=== PATIENT | female | born 1980 | race Caucasian/White ===

== ENCOUNTER 2019-01-16 15:15 | Outpatient (RCR) | payer OTHER, SELFPAY | END 2019-02-02 23:59 | LOC: NS 15:15 | PROVIDERS: Visit Provider Obstetrics & Gynecology | DX: O99.210 Obesity complicating pregnancy, unspecified trimester (principal) | CPT/HCPCS: 97802 ==

== ENCOUNTER 2019-02-13 08:34 | Outpatient (RCR) | payer OTHER, SELFPAY ==
[2016-04-13 10:30] VITALS: BMI 32.3
== END 2019-03-04 23:59 ==
LOC: NS 08:34
PROVIDERS: Visit Provider Obstetrics & Gynecology
DX: O99.210 Obesity complicating pregnancy, unspecified trimester (principal)
CPT/HCPCS: 97803

== ENCOUNTER 2019-03-13 09:23 | Outpatient (RCR) | payer OTHER, SELFPAY ==
[2016-04-13 10:30] VITALS: BMI 32.3
== END 2019-03-13 16:14 | disposition home or self-care (01) ==
LOC: NS 09:23
PROVIDERS: Visit Provider Obstetrics & Gynecology
DX: O99.210 Obesity complicating pregnancy, unspecified trimester (principal); Z71.3 Dietary counseling and surveillance
CPT/HCPCS: 97803

== ENCOUNTER 2019-07-30 18:50 | Inpatient (IN) | payer OTHER, SELFPAY ==
[2019-07-30] VITALS (10 sets, daily range): BP systolic 117–145; BP diastolic 61–87; PULSE 71–99; RESP 14–17; TEMP 35.9–36.6; O2SAT 96–98; BMI 36.1
[2019-07-30] MEDS: Lactated Ringers 1,000 ML 999 ML IV (19:00)
[2019-07-30 19:26] LABS: Absolute Lymphocyte Count 2.07 X10^3/uL (0.83-4.51); Basophil# 0.02 X10^3/uL; Basophil% 0.2 % (0-1); Eosinophil# 0.07 X10^3/uL; Eosinophils% 0.7 % (0-5); Hematocrit 36.1 % (37-47); Hemoglobin 12.3 g/dL (12.0-15.0); Lymphocyte # 2.07 X10^3/ul (4.0); Lymphocyte % 21.1 % (19-41); Mean Corp Hgb Conc 34.1 g/dL (32-36); Mean Corpuscular Hgb 29.4 pg (27.0-32.0); Mean Corpuscular Volume 86.4 fL (81-99); Mean Platelet Vol. 9.5 fl (6.2-12.0); Monocyte# 0.59 X10^3/uL; NRBC Flagged by Analyzer 0 % (0-5); Neutrophil # 7.01 X10^3/uL (2.7-7.7); Neutrophil % 71.5 % (47-70); Platelet Count 224 K/mm3 (150-450); RBC Distribution Width CV 12.9 % (11.6-14.6); RBC Distribution Width SD 40.2 fl (35.1-43.9); Red Blood Count 4.18 M/mm3 (4.2-5.4); White Blood Count 9.8 K/mm3 (4.4-11.0)
[2019-07-30] MEDS: Cefazolin 2 GM in 0.9% Normal Saline 100 ML IV (19:45)
[2019-07-30] MEDS: Sodium Citrate/Citric Acid 30 ML UDC PO (19:49)
--- NOTE | 2019-07-30 20:00 | PLAC_PTH ---
PATIENT: NICHOLAS TAM LOC: [facility] U#:[id number] AGE/SX: 39/F ROOM: WP006 RE07/30/[address]: Dr. Melissa López MD : [id number] BED: 1 DIS: 08/02/2019 SPEC #: [id number] RECD: 07/30/19 22:59 STATUS: KD REKezia #: [id number] YOEL: 07/30/19 20:[address]: Melissa López DEPT: SURGICAL PATHOLOGY RECD BY: Vicente Branch ENTERED: 07/31/19 09:18 SP TYPE: PLACENTA OTHR DR: No Primary Care Phys Tissues: A - Placenta, NOS B - Fallopian tube C - Fibrous tissue Procedures: Surgery Specimen Level IV Surgery Specimen Level V HEADER OPERATION: Repeat section; tubal ligation PRE-OP DIAGNOSIS: PPROM TISSUE SUBMITTED: A - Placenta, B - Bilateral fallopian tubes, C - Uterine fibroid MICROSCOPIC DIAGNOSIS A. Tarango placenta (428 gm): Umbilical cord - trivascular with no evidence of inflammation. Placental membranes - mild acute deciduitis. Placental disc - organizing intraparenchymal hemorrhage and mild Jin-Glen change. B. Right and left fallopian tubes, bilateral salpingectomies: Right fallopian tube - Complete segment of fallopian tube with no pathologic change. Left fallopian tube - benign paratubal cyst. C. Uterine fibroid, excision: Leiomyoma with degenerative change. AM:nathanael 08/01/19 MICROSCOPIC DESCRIPTION Slides are reviewed. GROSS DESCRIPTION A - SPECIMEN: PLACENTA / CLINICAL INFORMATION: A. Weight: 2.765 kg B. Gestational Age: 35 weeks C. Sex: Male PLACENTAL WEIGHT (POST FIXATION): 428 gm PLACENTAL DIMENSIONS: 16 x 13 x 3.7 cm PLACENTAL SHAPE: Usual ovoid PLACENTAL WEIGHT FOR GESTATIONAL AGE: Within 10-99th percentile MEMBRANES - Present A. Insertion: Marginal B. Site of rupture from edge: 2.5 cm from edge of placental disc C. Color of membrane: Daniels-moses D. Abnormalities: None UMBILICAL CORD - Present A. Color: Daniels-moses B. Insertion: Eccentric C. Length: 33 cm D. Diameter: 1.5 cm E. Number of vessels: Three F. Abnormalities: None PLACENTAL DISC - Present A. Color of surface: Daniels-moses B. surface abnormalities: None C. Maternal cotyledons: Intact with minimal tears D. Attached retro placental clot: No clot E. Cut surface: Dark red and spongy F. Lesions: One lesion, reddish-daniels, measuring 1 cm in greatest dimension. G. Separate clot: 10 x 7 x 2 cm SECTIONS SUBMITTED: 1. Umbilical cord ( end notched) 2. Umbilical cord, maternal end 3. Membrane roll 4. Placental disc, and maternal surfaces, lesion 5. Placental disc, and maternal surfaces 6. Placental disc, and maternal surfaces AM: 07/31/19 B - Received is one container labeled with the patient's name and designated bilateral fallopian tubes. The specimen consists of bilateral fallopian tubes including fimbrial ends measuring 7 cm in length and up to 0.8 cm in diameter and 7.5 cm in length and up to 0.7 cm in diameter. One of the fallopian tubes show two smaller paratubal cysts filled with clear fluid each measuring 0.4 cm in greatest dimension. The fallopian tubes are not identified as right or left. Sections reveal unremarkable cut surfaces. Shipfitter sections are submitted in two cassettes as follows: 1 - one fallopian tube, 2 - second fallopian tube and paratubal cyst. / SJ: 07/31/19 C - Received in fixative is one container labeled with the patient's name and designated fibroid. The specimen consists of a nodular piece of daniels, indurated tissue measuring 2.2 x 1.5 x 1 cm. Sections of this mass reveal daniels whorled cut surfaces without areas of hemorrhage, necrosis or cystic degeneration. The entire specimen is submitted in two cassettes. / SJ:nathanael 07/31/19 TC:2 CPT: 53134,45471 x2
[2019-07-30] MEDS: Lactated Ringers 1,000 ML 150 ML IV (20:01)
--- NOTE | 2019-07-30 20:04 | PCM.HP.BLA ---
History and Physical Date of Admission: 07/30/19 HPI: The patient is a 38 year old female presenting for pre-operative visit. She is scheduled for? and bilateral salpingectomy, for?previous c/s, 35 w1 d , PPROM, sterilization request on?07/30/2019. ??Procedure discussed along with risks, benefits and complications. ?Other alternatives discussed for management. Consent form signed??Yes.? PAST MEDICAL HISTORY PAST MEDICAL HISTORY Diagnosis Date ? Asthma ? ? Hyperprolactinemia (HCC) ? ? dx by ? Infertility, female ? ? Seasonal allergies ? ? ? PAST SURGICAL HISTORY PAST SURGICAL HISTORY Procedure Laterality Date ? APPENDECTOMY ? 1997 ? DELIVERY ONLY ? 04/13/16 ? , low transverse ? SECTION HX ? 2014 ? ? CURRENT MEDICATIONS Current Outpatient Medications Medication Sig Dispense Refill ? oseltamivir (TAMIFLU) 75 mg capsule Take 1 capsule by mouth twice daily. 10 capsule 0 ? ferrous sulfate 325 mg (65 mg iron) tablet Take 325 mg by mouth every other day. ? ? ? Ctbhqrro-Kq-Hea-Fe-FA ( VITAMIN) tab Take 1 tablet by mouth. ? ? ? montelukast (SINGULAIR) 10 mg tablet Take 1 tablet by mouth daily at bedtime. 90 tablet 3 ? albuterol HFA (PROAIR HFA) 90 mcg/actuation inhaler Inhale 2 Puffs as instructed every 4 hours as needed. 1 Inhaler 5 ? triamcinolone acetonide (NASACORT AQ) 55 mcg nasal inhaler Use 2 Sprays in the nose daily at bedtime. 3 Bottle 3 ? Cholecalciferol, Vitamin D3, (VITAMIN D) 1,000 unit ORAL Cap Take 1,000 Units by mouth once daily. ? ? ? No current facility-administered medications for this visit.? ? ALLERGIES:?Dust Mites; Pollens Extract; Seasonal Allergies ? PERSONAL HISTORY:? SOCIAL HISTORY Social History ? Tobacco Use ? Smoking status: Never Smoker ? Smokeless tobacco: Never Used Substance Use Topics ? Alcohol use: Not Currently ? ? Comment: 1/week, not while ? Drug use: No ? FAMILY HISTORY:? FAMILY HISTORY FAMILY HISTORY Problem Relation Age of Onset ? Allergies Mother ? ? Thyroid Mother ? ? other (adult onset asthma) Mother ? ? No Known Problems Father ? ? No Known Problems Sister ? ? No Known Problems Sister ? ? No Known Problems Sister ? ? Diabetes Maternal Grandmother ? ? other (dementia) Maternal Grandfather ? ? Diabetes Paternal Grandmother ? ? No Known Problems Daughter ? ? other (skin cancer) Other ?aunts and GF: basal cell ? Breast Cancer Other ?paternal cousin. age 34 ? Breast Cancer Other ?paternal aunts ? No Known Problems Daughter ? ? REVIEW OF SYMPTOMS: GENERAL: denies fevers or chills ENDOCRINOLOGY: has not been on steroids Cardiology : denies palpitations or chest pain Respiratory: denies SOB or cough Hematology: denies history of prolonged bleeding or easy bruising or VTE Allergy: Denies history of personal or family history of allergy to anesthesia ? ? PHYSICAL EXAMINATION: ? VITALS:?Blood pressure 116/78, weight 231 lb (104.8 kg), last menstrual period 11/26/2018. ? GENERAL:??The patient is well nourished, well hydrated in no acute distress. ?, The patient is oriented to time, place, and person. NECK:?Supple. No lynphadenopathy, normal thyroid, no thyromegaly. LUNGS:?Clear to auscultation bilaterally. no wheezes, rhonchi or rales HEART:?Regular rate and rhythm, Normal heart sounds and No murmurs or gallops ABD: soft, nontender, gravid ? ? IMPRESSION:?35w1d? w/ PPROM ? PLAN:???The risks/benefits/alternatives and personal involved for the planned?c/s and bilateral salpingectomy?were reviewed with the patient. Her questions were answered to her satisfaction and she desires to proceed. ?Consent was signed. ?I reviewed with her postop instructions and expectations. ? ? I have reviewed and updated past medical and surgical history, medications and allergies? This H&P was completed in my office on 07/30/2019
--- NOTE | 2019-07-30 20:50 | PCM.OPRPT ---
Delivery Classification: Scheduled Final KENNY: 09/02/19 Gestational age: 35 Weeks and 1 Days space and storage clerk: Kasey Nguyễn Type of Anesthesia:: Spinal Special Medications: duramorph Implants Used: none Date of Procedure: 07/30/19 Pre-Operative Diagnosis: PPROM, previous c/s, sterilization request Post-Operative Diagnosis: same + uterine fibroid Indications for : Repeat Elective , Desires elective sterilization, - - uterine fibroid in lower uterine segmen Description of Procedure: The patient was taken to the operating room. She was prepped and draped in the dorsal supine position with a leftward tilt. A Pfannenstiel skin incision was made approximately 2 cm above the symphysis pubis and carried through to underlying layer fascia with the scalpel. The fascia was incised incised in the midline and extended laterally with the Perla scissors. The fascia was dissected off the rectus muscles with blunt and sharp dissection. The rectus muscles were in the midline and the peritoneum was entered bluntly. The peritoneal incision was stretched and the bladder blade was placed. The uterine incision was made in a low transverse fashion with the scalpel and extended superiorly and inferiorly with blunt dissection. The amniotic membranes were ruptured bluntly and minimal clear amniotic fluid returned. The 's head was brought to the incision in the flexed position and delivered without difficulty. The remainder of the infant was delivered with gentle traction and fundal pressure in the standard fashion. The mouth and nares were bulb suctioned. The cord was clamped and cut as the infant was stimulated. Cord clamping was delayed. The infant was handed off to the waiting nursing staff. The placenta was delivered with fundal massage and gentle traction in the standard fashion. The uterus was exteriorized and cleared of all clots and debris. The cervix was dilated with a ring forcep. There is a small uterine fibroid in the right portion of the lower uterine segment. It was where I was going to be placing my sutures to close the uterine incision so it was shelled out. This made the incision come together better. The uterine incision was closed with #1 Vicryl in a running locked fashion. The incision was examined and was found to be hemostatic. The uterus was placed back into the peritoneal cavity and hemostasis was again confirmed. The left tube was notified and followed out to the fimbriated end. It was tented up with Childwold clamps. The LigaSure device was used to clamp, seal and transect the tube along the antimesenteric portion. Hemostasis of the pedicles was assured. The same procedure was performed on the contralateral side and again hemostasis was assured. The rectus muscles were examined and any bleeding was Bovie cauterized. The parietal peritoneum and rectus muscles were closed en bloc with an 0 Vicryl running suture. The rectus fascia was examined and any bleeding was Bovie cauterized and the rectus fascia was closed with 0 PDS suture in a running standard fashion. The subcutaneous tissue was examining and any bleeding was Bovie cauterized. The subcutaneous tissue was reapproximated with 3-0 Vicryl suture. The skin was closed in a subcuticular fashion by the NURSING TECHNICIAN with me present in the labor and delivery suite. I performed the remainder of the procedure with assistance. All sponge, lap, and needle counts were correct. The patient was taken to her room for recovery in a stable condition. Amniotic Membrane Rupture Type: Spontaneous Amniotic Fluid Description: Clear Placenta Disposition: Sent to Pathology Specimen(s) sent to pathology: placenta Drain: Reddy to straight drain Fluids Replaced: 1500 Cord Entanglement: None Cord Vessel Description: 3 Vessels Esitmated Blood Loss (ml): 600 Infant Gender: Male (1 minute): 8 (5 minute): 9 Delayed cord clamping: Yes Antibiotic Given: Ancef 2 grams IV x1, Zithromax 500 mg/5 mL X1 Complications: None - Admit VTE Documentation VTE Present on Admission: No VTE Mechan Device Prophylaxis: SCD's VTE Pharm Prophylaxis ordered?: Yes
[2019-07-30] MEDS: Oxytocin 30 units/NS 500 ml 30 UNITS/500 ML IV.SOLN 167 UNITS IV (21:15)
[2019-07-30] MEDS: Lactated Ringers 1,000 ML 100 ML IV (21:15)
[2019-07-30] MEDS: 0.9% Saline Lock 10 ML Syringe IV (22:49)
[2019-07-30] MEDS: Ondansetron 4 MG/2 ML Vial IV (22:50)
[2019-07-30 22:56] LABS: Pathology Specimen OB SEE PATHOLOGY REPORT
[2019-07-31] VITALS (10 sets, daily range): BP systolic 100–127; BP diastolic 50–71; PULSE 70–84; RESP 14–16; TEMP 36–36.6; O2SAT 96–98
--- NOTE | 2019-07-31 00:56 | NURSING ---
1500 cc IV fluid intake per Dr canales anesthesiologist.
--- NOTE | 2019-07-31 01:19 | NURSING ---
late entry. dr canales anesthesiologist gave toradol at 203907/30/19 in OR. pharmacist states this RN should not chart this med administration on AUG. next timed dose at 0300 and to be given by this RN.
[2019-07-31] MEDS: Ketorolac 30 MG/ML Syringe IV ×4 (03:04→20:37)
[2019-07-31] MEDS: Lactated Ringers 1,000 ML 100 ML IV (03:04)
[2019-07-31] MEDS: 0.9% Saline Lock 10 ML Syringe IV ×4 (03:04→20:37)
[2019-07-31 05:22] LABS: Hematocrit 28.6 % (37-47); Mean Corpuscular Hgb 30.4 pg (27.0-32.0); Mean Corpuscular Volume 86.9 fL (81-99); Mean Platelet Vol. 9.4 fl (6.2-12.0); Platelet Count 149 K/mm3 (150-450); RBC Distribution Width CV 12.8 % (11.6-14.6); RBC Distribution Width SD 40.3 fl (35.1-43.9); Red Blood Count 3.29 M/mm3 (4.2-5.4); White Blood Count 9.7 K/mm3 (4.4-11.0)
[2019-07-31] MEDS: Enoxaparin 40 MG/0.4 ML Syringe SC (10:41)
[2019-07-31] MEDS: Montelukast 10 MG Tablet PO (10:41)
--- NOTE | 2019-07-31 13:33 | PCM.PN.OB ---
Subjective: pain well controlled, average lochia, no N/V - Physical Exam Vitals/I&O's: Vital Signs Temp Pulse Resp BP Pulse Ox 97.3 F L 75 16 107/67 98 07/31/19 07:51 07/31/19 07:51 07/31/19 07:51 07/31/19 07:51 07/31/19 07:51 Oxygen Delivery Method Room Air Weight: 104.7 kg Body Mass Index (BMI) 36.1 Intake and Output for Last 24 Hours 07/29/19 07/30/19 07/31/19 23:59 23:59 23:59 Intake Total 3136.5 / 3136.5 4251.67 / 4251.67 Output Total 300 / 300 1050 / 1050 Balance 2836.5 / 2836.5 3201.67 / 3201.67 General: Alert, Cooperative, No apparent distress Abdomen: Soft, Non Tender, Non-Distended, Gravid Extremities: Edema - trace Skin: Incision - bandage is clean, dry and intact Laboratory Results 07/30/19 19:00: WBC 9.8, RBC 4.18 L, Hgb 12.3, Hct 36.1 L, MCV 86.4, MCH 29.4, MCHC 34.1, RDW Std Deviation 40.2, RDW Coeff of Neftaly 12.9, Plt Count 224, MPV 9.5, Immature Gran % (Auto) 0.500, Neut % (Auto) 71.5 H, Lymph % (Auto) 21.1, Weston % (Auto) 6.0, Eos % (Auto) 0.7, Baso % (Auto) 0.2, Absolute Neuts (auto) 7.0, Absolute Lymphs (auto) 2.07, Nucleated RBC % 0 07/30/19 19:00: Blood Type A NEGATIVE, Antibody Screen TNP 07/30/19 19:00: Antibody Screen NEGATIVE 07/30/19 22:40: Screen NEGATIVE, Baby's Blood Type A POSITIVE, Baby's DEANNA NEGATIVE 07/31/19 05:15: WBC 9.7, RBC 3.29 L, Hgb 10.0 L, Hct 28.6 L, MCV 86.9, MCH 30.4, MCHC 35.0, RDW Std Deviation 40.3, RDW Coeff of Neftaly 12.8, Plt Count 149 L, MPV 9.4 Current Medications Acetaminophen (Tylenol) 1,000 mg PO Q8H PRN PRN PRN Reason: Pain Score 1-3/10 Bisacodyl (Dulcolax) 10 mg RECTAL UD PRN PRN Reason: If no BM Enoxaparin Sodium (Lovenox) 40 mg SC DAILY [facility] Last Admin: 07/31/19 10:41 Dose: 40 mg Documented by: Hydrocortisone (Hytone) 1 applic TOPICAL TID PRN PRN; Protocol PRN Reason: Discomfort Naloxone HCl 4 mg/ Dextrose 504 mls @ 0 mls/hr IV .Q0M PRN; Protocol PRN Reason: Respiratory depression Ketorolac Tromethamine (Toradol (Bkc)) 30 mg IV Q6H [facility] Stop: 08/01/19 21:01 Last Admin: 07/31/19 09:08 Dose: 30 mg Documented by: Methylergonovine Maleate (Methergine) 0.2 mg IM X1 PRN PRN Reason: Uterine Atony Montelukast Sodium (Singulair) 10 mg PO DAILY [facility] Last Admin: 07/31/19 10:41 Dose: 10 mg Documented by: Naloxone HCl (Narcan) 0.02 mg IV Q1M PRN PRN Reason: RR <10 and pt unresponsive Naproxen (Naprosyn) 250 - 500 mg PO Q8H PRN PRN PRN Reason: Pain Score 1-3/10 Ondansetron HCl (Zofran) 4 mg IV Q4H PRN PRN PRN Reason: Nausea Last Admin: 07/30/19 22:50 Dose: 4 mg Documented by: Oxycodone HCl (Oxyir) 5 - 10 mg PO Q4H PRN PRN PRN Reason: Pain Score 4-10/10 Prochlorperazine Edisylate (Compazine Iv) 10 mg IV Q6H PRN PRN PRN Reason: NAUSEA Senna/Docusate Sodium (Senokot-S, Leena-Colace) 1 - 2 tablet PO DAILY PRN PRN Reason: Constipation Simethicone (Mylicon) 80 mg PO PCHS PRN PRN Reason: Indigestion/stomach pain Sodium Chloride () 5 - 15 ml IV UD PRN PRN Reason: SALINE FLUSH Last Admin: 07/31/19 09:11 Dose: 10 ml Documented by: Medical Necessity - Tobacco Use Smoking Status: Never smoker Assessment/Plan POD#1 doing well acute blood loss anemia appropriate for blood loss during surgery is doing well routine care for patient
[2019-07-31] MEDS: Senna/Docusate Sodium 1 Tablet PO (15:37)
[2019-08-01] MEDS: oxyCODONE 5 MG Tablet PO ×4 (00:57→18:27)
[2019-08-01] MEDS: Ketorolac 30 MG/ML Syringe IV ×4 (02:30→23:36)
[2019-08-01] MEDS: 0.9% Saline Lock 10 ML Syringe IV ×4 (02:31→23:37)
[2019-08-01 02:35] VITALS: BP 101/49; PULSE 76; RESP 16; TEMP 36.8; O2SAT 99
[2019-08-01 07:58] VITALS: BP 125/66; PULSE 79; RESP 15; TEMP 36.7
[2019-08-01] MEDS: Enoxaparin 40 MG/0.4 ML Syringe SC (10:04)
[2019-08-01] MEDS: Montelukast 10 MG Tablet PO (11:19)
--- NOTE | 2019-08-01 13:50 | PCM.PN.OB ---
Subjective: Pain well controlled, average lochia, doing well overall. Lizeth. regular diet - Physical Exam Vitals/I&O's: Vital Signs Temp Pulse Resp BP Pulse Ox 98.0 F 79 15 125/66 H 99 08/01/19 07:58 08/01/19 07:58 08/01/19 07:58 08/01/19 07:58 08/01/19 02:35 Oxygen Delivery Method Room Air Weight: 104.7 kg Body Mass Index (BMI) 36.1 Intake and Output for Last 24 Hours 07/30/19 07/31/19 08/01/19 23:59 23:59 23:59 Intake Total 3136.5 / 3136.5 4251.67 / 4251.67 Output Total 300 / 300 1450 / 1450 Balance 2836.5 / 2836.5 2801.67 / 2801.67 General: Alert, Cooperative, No apparent distress Abdomen: Soft, Distended - mildly, softly, Tender - appropriately Extremities: Edema - 1+ Skin: Incision - bandage is dry and intact Current Medications Acetaminophen (Tylenol) 1,000 mg PO Q8H PRN PRN PRN Reason: Pain Score 1-3/10 Bisacodyl (Dulcolax) 10 mg RECTAL UD PRN PRN Reason: If no BM Enoxaparin Sodium (Lovenox) 40 mg SC DAILY [facility] Last Admin: 08/01/19 10:04 Dose: 40 mg Documented by: Hydrocortisone (Hytone) 1 applic TOPICAL TID PRN PRN; Protocol PRN Reason: Discomfort Naloxone HCl 4 mg/ Dextrose 504 mls @ 0 mls/hr IV .Q0M PRN; Protocol PRN Reason: Respiratory depression Ketorolac Tromethamine (Toradol (Bkc)) 30 mg IV Q6H [facility] Stop: 08/01/19 21:01 Last Admin: 08/01/19 10:05 Dose: 30 mg Documented by: Methylergonovine Maleate (Methergine) 0.2 mg IM X1 PRN PRN Reason: Uterine Atony Montelukast Sodium (Singulair) 10 mg PO DAILY [facility] Last Admin: 08/01/19 11:19 Dose: 10 mg Documented by: Naloxone HCl (Narcan) 0.02 mg IV Q1M PRN PRN Reason: RR <10 and pt unresponsive Naproxen (Naprosyn) 250 - 500 mg PO Q8H PRN PRN PRN Reason: Pain Score 1-3/10 Ondansetron HCl (Zofran) 4 mg IV Q4H PRN PRN PRN Reason: Nausea Last Admin: 07/30/19 22:50 Dose: 4 mg Documented by: Oxycodone HCl (Oxyir) 5 - 10 mg PO Q4H PRN PRN PRN Reason: Pain Score 4-10/10 Last Admin: 08/01/19 05:28 Dose: 5 mg Documented by: Prochlorperazine Edisylate (Compazine Iv) 10 mg IV Q6H PRN PRN PRN Reason: NAUSEA Senna/Docusate Sodium (Senokot-S, Leena-Colace) 1 - 2 tablet PO DAILY PRN PRN Reason: Constipation Last Admin: 07/31/19 15:37 Dose: 1 tablet Documented by: Simethicone (Mylicon) 80 mg PO PCHS PRN PRN Reason: Indigestion/stomach pain Sodium Chloride () 5 - 15 ml IV UD PRN PRN Reason: SALINE FLUSH Last Admin: 08/01/19 10:05 Dose: 10 ml Documented by: Medical Necessity - Tobacco Use Smoking Status: Never smoker Assessment/Plan POD#2 routine care doing well likely d/c pt tomorrow.
[2019-08-01 13:56] VITALS: BP 141/91; PULSE 84; RESP 14; TEMP 37.2
[2019-08-01] MEDS: Senna/Docusate Sodium 1 Tablet PO (14:01)
[2019-08-01 21:09] VITALS: BP 122/66; PULSE 82; RESP 18; TEMP 37.1
[2019-08-01] MEDS: Acetaminophen 500 MG Tablet 1000 MG PO (21:22)
[2019-08-02 01:25] VITALS: BP 111/58; PULSE 64; RESP 14; TEMP 36.3
--- NOTE | 2019-08-02 05:49 | DCINST_ITS ---
Discharge Diet: No Restrictions Discharge Activity: Return to Normal Activity, May Shower, May Take a Tub Bath - in 2 weeks. Allergies/Adverse Reactions: Allergies No Known Allergies Allergy (Verified 07/30/19 19:03) Medications to take at Discharge Montelukast [Singulair] 10 mg PO DAILY 02/13/16 Pnv95/Iron Fum/Folic Acid [ Caplet] 1 each PO DAILY 02/13/16 Ferrous Sulfate 325 mg PO QODAY 04/13/16 Cholecalciferol (Vitamin D3) [Vitamin D3] 2,000 unit PO DAILY 07/30/19 Ibuprofen [Motrin] 600 mg PO Q6H PRN #60 tab 08/02/19 The following prescriptions were given: Ibuprofen [Motrin] 600 mg PO Q6H PRN #60 tab PRN Reason: Pain Transmission Status: Pending to [id number] Primary Care Physician: Care Physician,No Primary [Primary Care Provider] - Test Results: Test results from this visit will be discussed in further detail at your follow- up appointment, if applicable. Please Follow Up With: Melissa López MD - [phone] When: 1-2 and 6 weeks or as needed
[2019-08-02] MEDS: oxyCODONE 5 MG Tablet PO (07:34)
--- NOTE | 2019-08-02 07:36 | PN.OBGYN_ITS ---
Subjective: pain well controlled, average lochia. +Flatus, no BM. doing well - Physical Exam Vitals/I&O's: Vital Signs Temp Pulse Resp BP Pulse Ox 97.4 F L 64 14 111/58 L 99 08/02/19 01:25 08/02/19 01:25 08/02/19 01:25 08/02/19 01:25 08/01/19 02:35 Oxygen Delivery Method Room Air Weight: 104.7 kg Body Mass Index (BMI) 36.1 Intake and Output for Last 24 Hours 07/31/19 08/01/19 08/02/19 23:59 23:59 23:59 Intake Total 4251.67 / 4251.67 Output Total 1450 / 1450 Balance 2801.67 / 2801.67 General: Alert, Cooperative, No apparent distress Abdomen: Soft, Distended - mildly, softly Extremities: Edema - 2+ Skin: Incision - bandage clean, dry and intact Current Medications Acetaminophen (Tylenol) 1,000 mg PO Q8H PRN PRN PRN Reason: Pain Score 1-3/10 Last Admin: 08/01/19 21:22 Dose: 1,000 mg Documented by: Bisacodyl (Dulcolax) 10 mg RECTAL UD PRN PRN Reason: If no BM Enoxaparin Sodium (Lovenox) 40 mg SC DAILY [facility] Last Admin: 08/01/19 10:04 Dose: 40 mg Documented by: Hydrocortisone (Hytone) 1 applic TOPICAL TID PRN PRN; Protocol PRN Reason: Discomfort Naloxone HCl 4 mg/ Dextrose 504 mls @ 0 mls/hr IV .Q0M PRN; Protocol PRN Reason: Respiratory depression Methylergonovine Maleate (Methergine) 0.2 mg IM X1 PRN PRN Reason: Uterine Atony Montelukast Sodium (Singulair) 10 mg PO DAILY [facility] Last Admin: 08/01/19 11:19 Dose: 10 mg Documented by: Naloxone HCl (Narcan) 0.02 mg IV Q1M PRN PRN Reason: RR <10 and pt unresponsive Naproxen (Naprosyn) 250 - 500 mg PO Q8H PRN PRN PRN Reason: Pain Score 1-3/10 Ondansetron HCl (Zofran) 4 mg IV Q4H PRN PRN PRN Reason: Nausea Last Admin: 07/30/19 22:50 Dose: 4 mg Documented by: Oxycodone HCl (Oxyir) 5 - 10 mg PO Q4H PRN PRN PRN Reason: Pain Score 4-10/10 Last Admin: 08/02/19 07:34 Dose: 5 mg Documented by: Prochlorperazine Edisylate (Compazine Iv) 10 mg IV Q6H PRN PRN PRN Reason: NAUSEA Senna/Docusate Sodium (Senokot-S, Leena-Colace) 1 - 2 tablet PO DAILY PRN PRN Reason: Constipation Last Admin: 08/01/19 14:01 Dose: 2 tablet Documented by: Simethicone (Mylicon) 80 mg PO PCHS PRN PRN Reason: Indigestion/stomach pain Last Admin: 08/01/19 18:48 Dose: 80 mg Documented by: Sodium Chloride () 5 - 15 ml IV UD PRN PRN Reason: SALINE FLUSH Last Admin: 08/01/19 23:37 Dose: 10 ml Documented by: Medical Necessity - Tobacco Use Smoking Status: Never smoker Assessment/Plan POD#3 doing well routine care ready for d/c infant and doing well
--- NOTE | 2019-08-02 07:43 | DS.PCM_ITS ---
Discharge Date and Diagnosis Date of Admission: 07/30/19 Date of Discharge: 08/02/19 Hospital Course and Treatment Operations: None Procedures: - - repeat low transverse section with bilateral salpingectomy Summary of Care Provided: The patient is a 39 year old multigravida female who presents for repeat section due to premature rupture of membranes. section was performed without difficulty. Patient and did well. By postoperative day #3 she was ambulating, urinating tolerating regular diet without difficulty. She was discharged home with routine instructions and pres criptions. She is to follow-up in the office in 1-2 in 6 weeks or as needed. She is comfortable with plan. [] - Physical Exam Vitals/I&O's: Vital Signs Temp Pulse Resp BP Pulse Ox 97.4 F L 64 14 111/58 L 99 08/02/19 01:25 08/02/19 01:25 08/02/19 01:25 08/02/19 01:25 08/01/19 02:35 Oxygen Delivery Method Room Air Weight: 104.7 kg Body Mass Index (BMI) 36.1 Intake and Output for Last 24 Hours 07/31/19 08/01/19 08/02/19 23:59 23:59 23:59 Intake Total 4251.67 / 4251.67 Output Total 1450 / 1450 Balance 2801.67 / 2801.67 Current Medications Acetaminophen (Tylenol) 1,000 mg PO Q8H PRN PRN PRN Reason: Pain Score 1-3/10 Last Admin: 08/01/19 21:22 Dose: 1,000 mg Documented by: Bisacodyl (Dulcolax) 10 mg RECTAL UD PRN PRN Reason: If no BM Enoxaparin Sodium (Lovenox) 40 mg SC DAILY [facility] Last Admin: 08/01/19 10:04 Dose: 40 mg Documented by: Hydrocortisone (Hytone) 1 applic TOPICAL TID PRN PRN; Protocol PRN Reason: Discomfort Naloxone HCl 4 mg/ Dextrose 504 mls @ 0 mls/hr IV .Q0M PRN; Protocol PRN Reason: Respiratory depression Methylergonovine Maleate (Methergine) 0.2 mg IM X1 PRN PRN Reason: Uterine Atony Montelukast Sodium (Singulair) 10 mg PO DAILY [facility] Last Admin: 08/01/19 11:19 Dose: 10 mg Documented by: Naloxone HCl (Narcan) 0.02 mg IV Q1M PRN PRN Reason: RR <10 and pt unresponsive Naproxen (Naprosyn) 250 - 500 mg PO Q8H PRN PRN PRN Reason: Pain Score 1-3/10 Ondansetron HCl (Zofran) 4 mg IV Q4H PRN PRN PRN Reason: Nausea Last Admin: 07/30/19 22:50 Dose: 4 mg Documented by: Oxycodone HCl (Oxyir) 5 - 10 mg PO Q4H PRN PRN PRN Reason: Pain Score 4-10/10 Last Admin: 08/02/19 07:34 Dose: 5 mg Documented by: Prochlorperazine Edisylate (Compazine Iv) 10 mg IV Q6H PRN PRN PRN Reason: NAUSEA Senna/Docusate Sodium (Senokot-S, Leena-Colace) 1 - 2 tablet PO DAILY PRN PRN Reason: Constipation Last Admin: 08/01/19 14:01 Dose: 2 tablet Documented by: Simethicone (Mylicon) 80 mg PO PCHS PRN PRN Reason: Indigestion/stomach pain Last Admin: 08/01/19 18:48 Dose: 80 mg Documented by: Sodium Chloride () 5 - 15 ml IV UD PRN PRN Reason: SALINE FLUSH Last Admin: 08/01/19 23:37 Dose: 10 ml Documented by: Discharge Diet: No Restrictions Discharge Activity: Return to Normal Activity, May Shower, May Take a Tub Bath - in 2 weeks. Home Medications: Medications to take at Discharge Montelukast [Singulair] 10 mg PO DAILY 02/13/16 Pnv95/Iron Fum/Folic Acid [ Caplet] 1 each PO DAILY 02/13/16 Ferrous Sulfate 325 mg PO QODAY 04/13/16 Cholecalciferol (Vitamin D3) [Vitamin D3] 2,000 unit PO DAILY 07/30/19 Ibuprofen [Motrin] 600 mg PO Q6H PRN #60 tab 08/02/19 Oxycodone [Oxyir] 5 mg PO Q6H PRN PRN 7 Days #10 tablet 08/02/19 Following Prescrptions Were Given to Patient: Ibuprofen [Motrin] 600 mg PO Q6H PRN #60 tab PRN Reason: Pain Transmission Status: Received by [id number] Oxycodone [Oxyir] 5 mg PO Q6H PRN PRN 7 Days #10 tablet PRN Reason: severe pain Transmission Status: Received by [id number] Primary Care Physician: Care Physician,No Primary [Primary Care Provider] - Please Follow Up With: Melissa López MD - [phone] When: 1-2 and 6 weeks or as needed Medical Necessity - Tobacco Use Smoking Status: Never smoker Meaningful Use Info Meaningful Use Diagnoses (Choose all that apply): None applicable
[2019-08-02 09:10] VITALS: BP 132/88; PULSE 88; RESP 14; TEMP 36.6
[2019-08-02] MEDS: Enoxaparin 40 MG/0.4 ML Syringe SC (09:15)
[2019-08-02] MEDS: Montelukast 10 MG Tablet PO (09:15)
[2019-08-02] MEDS: Senna/Docusate Sodium 1 Tablet PO (09:16)
[2019-08-02] MEDS: Naproxen 250 MG Tablet PO (09:16)
== END 2019-08-02 12:25 | disposition home or self-care (01) | DRG 784 ==
PROVIDERS: Admitting Provider Obstetrics & Gynecology; Visit Provider Obstetrics & Gynecology
DX: O42.013 Preterm premature rupture of membranes, onset of labor within 24 hours of rupture, third trimester (principal); D62 Acute posthemorrhagic anemia; O34.219 Maternal care for unspecified type scar from previous cesarean delivery; O34.13 Maternal care for benign tumor of corpus uteri, third trimester; D25.9 Leiomyoma of uterus, unspecified; Z3A.35 35 weeks gestation of pregnancy; Z37.0 Single live birth; N83.8 Other noninflammatory disorders of ovary, fallopian tube and broad ligament; O75.89 Other specified complications of labor and delivery; O90.81 Anemia of the puerperium
CPT/HCPCS: 85025; 85027; 85461; 86850; 86900; 86901; 88302; 88304; 88305; 88307; 90384; 99218; 99251; J7120; A4216; G0378; G0463; J2405; J2790

== ENCOUNTER 2022-09-30 10:26 | Day surgery (SDC) | payer OTHER, SELFPAY ==
--- NOTE | 2022-09-26 12:09 | PCM.HP.BLA ---
History and Physical Date of Admission: 09/30/22 HPI: The patient is a 42 year old female presenting for pre-operative visit. She is scheduled for hysteroscopy with endometrial ablation with removal of IUD and reinsertion of IUD, for menhorrhagiea on 09/30/22. Procedure discussed along with risks, benefits and complications. Other alternatives discussed for management. Consent form signed? Yes. ? ? PAST MEDICAL HISTORY PAST MEDICAL HISTORY Diagnosis Date ? Asthma ? ? Hyperprolactinemia (HCC) ? ? dx by ? Infertility, female ? ? Seasonal allergies ? ? ? PAST SURGICAL HISTORY PAST SURGICAL HISTORY Procedure Laterality Date ? APPENDECTOMY ? 1997 ? DELIVERY ONLY ? 04/13/2016 ? , low transverse ? DELIVERY ONLY ? 07/30/2019 ? RC/S low transverse ? SECTION HX ? 2014 ? INSERT INTRAUTERINE DEVICE ? 06/18/2021 ? TUBAL LIGATION Bilateral 07/30/2019 ? ? ? CURRENT MEDICATIONS Current Outpatient Medications Medication Sig Dispense Refill ? diclofenac (VOLTAREN) 1 % topical gel Apply 1 g to affected area four times daily. 100 g 3 ? albuterol HFA (PROAIR HFA) 90 mcg/actuation inhaler Inhale 2 Puffs as instructed every 4 hours as needed. 1 Each 3 ? montelukast (SINGULAIR) 10 mg tablet Take 1 tablet by mouth daily at bedtime. 90 tablet 3 ? fluticasone (FLOVENT HFA) 44 mcg/actuation inhaler Inhale 1 Puff as instructed twice daily. Shake well before use. Rinse mouth after use. 1 Inhaler 0 ? levonorgestrel (MIRENA) 20 mcg/24 hours (7 yrs) 52 mg IUD 1 Each by INTRAUTERINE route as directed. 1 Each 0 ? triamcinolone acetonide (NASACORT AQ) 55 mcg nasal inhaler Use 2 Sprays in the nose daily at bedtime. 3 Bottle 3 ? Cholecalciferol, Vitamin D3, 25 mcg (1,000 unit) cap Take 1,000 Units by mouth once daily. ? ? ? No current facility-administered medications for this visit. ? ? ALLERGIES: Dust Mites, Pollens Extract, and Seasonal Allergies ? PERSONAL HISTORY: SOCIAL HISTORY Social History ? Tobacco Use ? Smoking status: Never ? Smokeless tobacco: Never Vaping Use ? Vaping Use: Never used Substance Use Topics ? Alcohol use: Yes ? ? Comment: seldom ? Drug use: No ? FAMILY HISTORY: FAMILY HISTORY FAMILY HISTORY Problem Relation Age of Onset ? Allergies Mother ? ? Thyroid Mother ? ? other (adult onset asthma) Mother ? ? No Known Problems Father ? ? No Known Problems Sister ? ? No Known Problems Sister ? ? No Known Problems Sister ? ? Diabetes Maternal Grandmother ? ? other (dementia) Maternal Grandfather ? ? Diabetes Paternal Grandmother ? ? No Known Problems Daughter ? ? other (skin cancer) Other ? ? aunts and GF: basal cell ? Breast Cancer Other ? ? paternal cousin. age 34 ? Breast Cancer Other ? ? paternal aunts ? No Known Problems Daughter ? ? ? REVIEW OF SYMPTOMS: GENERAL: denies fevers or chills ENDOCRINOLOGY: has not been on steroids Cardiology : denies palpitations or chest pain Respiratory: denies SOB or cough Hematology: denies history of prolonged bleeding or easy bruising or VTE Allergy: Denies history of personal or family history of allergy to anesthesia ? PHYSICAL EXAMINATION: ? VITALS: Blood pressure 122/80, pulse 70, resp. rate 16, height 5' 7.25 (1.708 m), weight 213 lb (96.6 kg), last menstrual period 11/15/2021, SpO2 99 %. ? GENERAL: The patient is well nourished, well hydrated in no acute distress. , The patient is oriented to time, place, and person. NECK: Supple. No lynphadenopathy, normal thyroid, no thyromegaly. LUNGS: Clear to auscultation bilaterally. no wheezes, rhonchi or rales HEART: Regular rate and rhythm, Normal heart sounds, and No murmurs or gallops ? IMPRESSION: menorrhagia ? PLAN: The risks/benefits/alternatives and personal involved for the planned removal of IUD, hysteroscopy with endometrial ablation and reinsertion of IUD were reviewed with the patient. Her questions were answered to her satisfaction and she desires to proceed. Consent was signed. I reviewed with her postop instructions and expectations. 06/08/21 neg EMB 07/11/22 pelvic US reviewed- 2 small posterior intramural uterine fibroids 04/2021 pap and HPHPV neg I have reviewed and updated past medical and surgical history, medications and allergies Assessment & Plan Assessment/Plan (1) Menorrhagia: (2) Intramural uterine fibroid:
[2022-09-30] VITALS (8 sets, daily range): BP systolic 111–143; BP diastolic 65–83; PULSE 54–77; RESP 14–16; TEMP 36.1–36.6; O2SAT 96–100; BMI 33.1
[2022-09-30] MEDS: Ketorolac 30 MG/ML Syringe IV (10:56)
[2022-09-30] MEDS: Acetaminophen 500 MG Tablet 1000 MG PO (10:56)
[2022-09-30 10:59] LABS: Hematocrit 38.2 % (37-47); Hemoglobin 12.9 g/dL (12.0-15.0); Mean Corp Hgb Conc 33.8 g/dL (32-36); Mean Corpuscular Hgb 29.5 pg (27.0-32.0); Mean Corpuscular Volume 87.4 fL (81-99); Mean Platelet Vol. 8.3 fl (6.2-12.0); Platelet Count 318 K/mm3 (150-450); RBC Distribution Width CV 12.2 % (11.6-14.6); RBC Distribution Width SD 39.3 fl (35.1-43.9); Red Blood Count 4.37 M/mm3 (4.2-5.4); White Blood Count 5.9 K/mm3 (4.4-11.0)
[2022-09-30] MEDS: Lactated Ringers 1,000 ML 15 ML IV (11:04)
[2022-09-30] MEDS: Lidocaine 1%/Epi 1:200 (30ml) 30 ML AMPUL (12:45)
--- NOTE | 2022-09-30 13:00 | EMB_PTH ---
PATIENT: NICHOLAS TAM [place] [facility] [place][id number] AGE/SX: 42/F ROOM: RE09/30/[address]: Dr. Melissa López MD : [id number] BED: DIS: 09/30/2022 SPEC #: [id number] RECD: 09/30/22 13:33 STATUS: KD AGUIAR #: [id number] YOEL: 09/30/22 13:[address]: Melissa López DEPT: SURGICAL PATHOLOGY RECD BY: Natalie Parisi Tissues: Endometrium, NOS Procedures: Surgery Specimen Level IV HEADER OPERATION: Hysteroscopy, D & C, removal/insertion Mirena IUD PRE-OP DIAGNOSIS: Menorrhagia, intramural uterine fibroid TISSUE SUBMITTED: Endometrial curettings MICROSCOPIC DIAGNOSIS Endometrial curettings: Consistent with exogenous hormone effects. Fragments of benign endocervical mucosa. SJ:nathanael 10/03/2022 MICROSCOPIC DESCRIPTION Slides are reviewed. GROSS DESCRIPTION Received in fixative is one container labeled with the patient's name and designated endometrial curettings. The specimen consists of multiple fragments of hemorrhagic soft tissue mixed with mucoid tissue that in aggregate measure 5.0 x 3.0 x 0.2 cm. The specimen is totally submitted in two cassettes. / SJ:nathanael 09/30/2022 TC:5 CPT: 25747
--- NOTE | 2022-09-30 13:06 | PCM.OPRPT ---
Problems Associated Problem List Diagnoses (1) Intramural uterine fibroid: (2) Menorrhagia: Report of Operation Date of Procedure: 09/30/22 Pre-Operative Diagnosis: menorrhagia, intramural uterine fibroid Post-Operative Diagnosis: same Surgery/Procedure Performed:: hysteroscopy D&C with Pauline endometrial ablation, Removal of IUD and resinsertion of same IUD at end of the procedure Description of Surgical Findings:: lush endometrium, normal cervix and vagina, otherwise normal endometrial cavity, fibroid not identified and did not distort cavity Surgeon: Melissa López outside production inspector: None Type of Anesthesia: MAC/Supplemental/Local Anesthesiologist: Toney Perez Special Medications: none Specimen's removed: endometrial curettings Drains: none Estimated Blood Loss (mL): 10 Fluids Replaced: 1000 Description of Procedure: The patient was taken to the OR where she was prepped and draped in dorsal lithotomy position. The weighted speculum was placed in the vagina and the anterior lip of the cervix was grasped with a single-tooth tenaculum. A paracervical block was administered with 1% lidocaine with 1-100,000 epinephrine solution. The Mirena IUD was removed and intact. The cervix was dilated serially with Hegar dilators. The 5mm hysteroscope was placed into the uterine cavity and the above findings were noted. Bilateral tubal ostia were identified. The uterus sounded to 9 cm and the cervical length was 4 cm. The endometrial cavity length was 5 cm. The hysteroscope was removed. A gentle sharp curettage was done of the uterine cavity. The specimen was handed off and sent to pathology. The Pauline device was set to 5 cm. The instrument was then seated into the endometrial cavity and the indicator was in the green. The cervical seal balloon was inflated and the uterine integrity test was passed. The ablation procedure was initiated and completed without interruption. During the ablation procedure gentle traction was held on the tenaculum and the Pauline device was held up against the uterine fundus. When the ablation procedure was completed the Pauline was removed. The Mirena IUD was reinserted and seated at the fundus of the uterus. The strings were 1.5 cm long. The tenaculum was removed and the tenaculum site was noted to be hemostatic. All sponge and needle counts were correct. A vaginal sweep was performed by me. The patient was awakened and taken to the recovery room in stable condition. Hysteroscopic ins: 100Cc normal saline Hysteroscopic outs:50 Cc l Grafts/Implants Used: none Procedure Start Time: 12:42 Procedure Stop Time: 12:52 Complications none Admit VTE Documentation VTE Present on Admission: No VTE Mechan Device Prophylaxis: SCD's VTE Pharm Prophylaxis ordered?: No Reason prophylaxis not ordered:: Procedure Not Indicated
--- NOTE | 2022-09-30 13:11 | DCINST_ITS ---
Discharge Instructions Diet Discharge Diet: No restrictions and - Activity Discharge Activity: May Shower (10/01/22) Return to work on:: 10/03/22 May resume sexual activity in: 2 weeks Lifting Restrictions: none Dressing / Incision Call your doctor if your incision/area has: Sudden Increased Bleeding and Foul Smelling Discharge Call your doctor if you observe: Fever of 101 or Higher and Using more than 1 pad per hour (for 2 hrs in a row) Follow Up Care Please Follow Up With: Melissa López MD When: 2-4 weeks or as needed. Call [phone] to make an appointment or with any concerns. Test Results: Test results from this visit will be discussed in further detail at your follow- up appointment, if applicable. Discharge Plan Admission Primary Reason for Your Visit: Hysteroscopy with Pauline endometrial ablation, D&C Attending Provider: Melissa López Primary Care Provider: LAY VERGARA Discharge Orders/Prescriptions Prescriptions: No Action montelukast 10 MG tablet 10 mg PO DAILY cholecalciferol (vitamin D3) 2,000 UNIT capsule 2,000 unit PO DAILY fluticasone propionate [Flovent HFA] 44 mcg/actuation Hfa Aerosol Inhaler 1 puff INHALATION PRN PRN (Reason: ALLERGIES) Rx Instructions: administer with spacer albuterol sulfate 90 mcg/actuation Hfa Aerosol Inhaler 1 inh INHALATION Q6H PRN (Reason: ASTHMA) multivitamin Capsule 1 cap PO DAILY halobetasol propionate 0.05 % Cream 1 applic TOPICAL PRN PRN (Reason: EXCEMA) Mirena 21 mcg/24 hours (8 yrs) 52 mg Intrauterine Device 21 mcg INTRAUTERINE DAILY Referrals / Follow Up: LAY VERGARA [Other] Disposition Disposition (needs filled in before D/C Order can be placed): Home, Self Care
== END 2022-09-30 13:57 | disposition home or self-care (01) ==
LOC: SDC 10:28 → AC 10:29
PROVIDERS: Referring Provider Obstetrics & Gynecology; Visit Provider Obstetrics & Gynecology
PROC: 0U5B8ZZ Destruction of Endometrium, Via Natural or Artificial Opening Endoscopic (ICD-10-PCS; CPT 58558; principal; 2022-09-30 12:45)
DX: D25.1 Intramural leiomyoma of uterus (principal); J45.909 Unspecified asthma, uncomplicated
CPT/HCPCS: 58563; 58301; 58300; 00952; 85027; 88305; J7120; J2405